=== PATIENT | male | born 1935 | race African-American/Black ===

== ENCOUNTER 2021-09-28 15:00 | Inpatient (IN) | payer MEDICARE, OTHER ==
[~2021-09-28] VITALS: Ht 167.6 cm; Wt 84.8 kg
[~2021-09-28 15:00] MED LIST: AMLO-258 PO; ASPI81TA39 PO; DOCU-385 PO; FAMO20 PO; FOSI20TA98 PO; HEPA500018 SQ; MEMA1CAP3 PO; QUET25TA PO
[2021-09-28] MEDS ORDERED: BUME1TAB34 PO (15:29)
[2021-09-28] MEDS ORDERED: DONE-51 PO (15:29)
[2021-09-28] MEDS ORDERED: HYDR50TA36 PO (15:29)
[2021-09-28] MEDS ORDERED: APIX5TAB PO (15:29)
[2021-09-28] MEDS ORDERED: HYDR-4527 PO (15:29)
[2021-09-28] MEDS ORDERED: LISI-894 PO (15:29)
[2021-09-28 16:01] LABS: ANION GAP 10 mmol/L (8-16); CARBON DIOXIDE 30 mmol/L (22-29); CHLORIDE 103 mmol/L (98-107); CREATININE 1.58 mg/dL (0.60-1.30); GLOMERULAR FILTR. RATE CALC 51 mL/min (>60); GLUCOSE,RANDOM 135 mg/dL (70-110); POTASSIUM 3.9 mmol/L (3.5-5.1); SODIUM SERUM 143 mmol/L (136-145); UREA NITROGEN, BLOOD 26 mg/dL (7-18)
[2021-09-28 16:06] LABS: INR 1.1 (0.9-1.1); PROTHROMBIN TIME 11.9 SEC (9.4-11.6)
[2021-09-28 16:07] LABS: BASOPHILS % (AUTO) 0.7 % (0.0-2.0); EOSINOPHILS % (AUTO) 4.9 % (1.0-6.0); HEMATOCRIT 35.9 % (41-53); HEMOGLOBIN 11.6 g/dL (13.5-17.5); LYMPHOCYTES # (AUTO) 0.7 K/uL (1.0-4.8); LYMPHOCYTES % (AUTO) 5.5 % (22.0-44.0); MEAN CORPUSCULAR HGB CONC 32.4 G/dL (31.0-37.0); MEAN CORPUSCULAR VOLUME 86 fL (80-100); MONOCYTES % (AUTO) 8.7 % (2.0-9.0); NEUTROPHILS # (AUTO) 9.6 K/uL (1.8-7.7); NEUTROPHILS % (AUTO) 80.2 % (40.0-70.0); RED BLOOD CELL COUNT(AUTO) 4.16 MIL/uL (4.50-5.90); RED CELL DISTRIBUTION WIDTH 20.6 % (11.5-14.5)
[2021-09-28 16:08] LABS: ALANINE AMINOTRANSFERASE 24 U/L (12-78); ALBUMIN 3.6 g/dL (3.4-5.0); ALKALINE PHOSPHATASE 142 U/L (46-116); ASPARTATE AMINOTRANSFERASE 21 U/L (15-37); BILIRUBIN,TOTAL 0.4 mg/dL (0.1-1.0); TOTAL PROTEIN, SERUM 7.8 g/dL (6.4-8.2)
[2021-09-28] MEDS ORDERED: SODIUM CHLORIDE 0.9% 1,000 ML IV ONE (16:15)
[2021-09-28 16:16] LABS: PLATELET COUNT (AUTO) 870 K/uL (150-450)
[2021-09-28] MEDS ORDERED: AMLO10TA55 PO (16:19)
[2021-09-28] MEDS ORDERED: TAMS-13 PO (16:19)
[2021-09-28] MEDS ORDERED: MEMA28CA16 PO (16:19)
[2021-09-28 16:26] LABS: GLUCOMETER DEV NAME(LOC) ERT.5; GLUCOSE,POINT OF CARE 111 MG/DL (70-110)
[2021-09-28] MEDS ORDERED: HydrOXYzine HCL 25 MG TABLET PO PRN (17:15)
[2021-09-28 17:47] LABS: COVID AG,FIA SOURCE NASOPHARYNGEAL
[2021-09-28] MEDS ORDERED: QUET25TA PO (17:51)
[2021-09-28] MEDS ORDERED: TAMO10 PO (17:51)
[2021-09-28] MEDS: CefTRIAXone 1 GM/DEXTROSE 50 ML IV SCH (18:07)
[2021-09-28 18:15] LABS: FERRITIN 116 ng/mL (26-388); FREE T4 (FREE THYROXINE) 1.36 ng/dL (0.76-1.46); THYROID STIMULATING HORMONE 3.06 uIU/mL (0.36-3.74)
[2021-09-28] MEDS: MetroNIDAZOLE 500 MG/NACL 100 ML IV SCH (19:12)
[2021-09-28] MEDS ORDERED: OXYGEN THERAPY IH SCH (20:00)
[2021-09-28] MEDS: MEMANTINE HCL 10 MG TABLET PO SCH (21:00)
[2021-09-28] MEDS: APIXABAN 5 MG TABLET PO SCH (21:00)
[2021-09-28] MEDS: TAMSULOSIN HCL 0.4 MG CAPSULE PO SCH (21:00)
[2021-09-28] MEDS: DONEPEZIL HCL 10 MG TABLET PO SCH (21:00)
[2021-09-28] MEDS: LACTOBACILLUS ACIDOPHILUS/BULGARICUS TABLET PO SCH (21:00)
[2021-09-28] MEDS: HydrALAZINE HCL 50 MG TABLET PO SCH (21:00)
[2021-09-29 00:29] LABS: C.DIFF GDH ANTIGEN, Stool Negative (Negative); C.DIFF TOXINS A&B, Stool Negative (Negative)
[2021-09-29] MEDS: MetroNIDAZOLE 500 MG/NACL 100 ML IV SCH ×3 (03:59→18:50)
[2021-09-29 04:20] VITALS: BP 156/72
[2021-09-29 06:55] LABS: BASOPHILS % (AUTO) 0.2 % (0.0-2.0); EOSINOPHILS % (AUTO) 0 % (1.0-6.0); HEMATOCRIT 31.7 % (41-53); HEMOGLOBIN 10.3 g/dL (13.5-17.5); LYMPHOCYTES # (AUTO) 0.2 K/uL (1.0-4.8); LYMPHOCYTES % (AUTO) 1.4 % (22.0-44.0); MEAN CORPUSCULAR HEMOGLOBIN 27.9 pg (26.0-34.0); MEAN CORPUSCULAR HGB CONC 32.3 G/dL (31.0-37.0); MEAN CORPUSCULAR VOLUME 86 fL (80-100); MONOCYTES # (AUTO) 2.3 K/uL (0.1-1.0); MONOCYTES % (AUTO) 13.3 % (2.0-9.0); NEUTROPHILS # (AUTO) 14.4 K/uL (1.8-7.7); NEUTROPHILS % (AUTO) 85.1 % (40.0-70.0); RED BLOOD CELL COUNT(AUTO) 3.68 MIL/uL (4.50-5.90); RED CELL DISTRIBUTION WIDTH 20.5 % (11.5-14.5)
[2021-09-29 07:02] LABS: ALANINE AMINOTRANSFERASE 17 U/L (12-78); ALBUMIN 2.9 g/dL (3.4-5.0); ALKALINE PHOSPHATASE 112 U/L (46-116); ANION GAP 9 mmol/L (8-16); ASPARTATE AMINOTRANSFERASE 18 U/L (15-37); BILIRUBIN,TOTAL 0.5 mg/dL (0.1-1.0); CALCIUM, TOTAL 8.2 mg/dL (8.8-10.5); CARBON DIOXIDE 28 mmol/L (22-29); CHLORIDE 107 mmol/L (98-107); CREATININE 1.31 mg/dL (0.60-1.30); GLUCOSE,RANDOM 121 mg/dL (70-110); SODIUM SERUM 144 mmol/L (136-145); TOTAL PROTEIN, SERUM 6.7 g/dL (6.4-8.2); UREA NITROGEN, BLOOD 22 mg/dL (7-18)
[2021-09-29 07:06] LABS: GLOMERULAR FILTR. RATE CALC > 60 mL/min (>60)
[2021-09-29 07:48] VITALS: BP 125/48
[2021-09-29 07:48] LABS: PLATELET COUNT (AUTO) 769 K/uL (150-450)
[2021-09-29] MEDS: APIXABAN 5 MG TABLET PO SCH (09:32)
[2021-09-29] MEDS: AmLODIPine BESYLATE 10 MG TABLET PO SCH (09:32)
[2021-09-29] MEDS: MEMANTINE HCL 10 MG TABLET PO SCH ×2 (09:32→20:46)
[2021-09-29] MEDS: LACTOBACILLUS ACIDOPHILUS/BULGARICUS TABLET PO SCH ×2 (09:32→20:46)
[2021-09-29] MEDS: ASPIRIN 81 MG CHEWABLE TABLET PO SCH (09:32)
[2021-09-29] MEDS: HydrALAZINE HCL 50 MG TABLET PO SCH ×3 (09:33→20:46)
[2021-09-29 11:23] VITALS: BP 131/55
[2021-09-29] MEDS ORDERED: SODIUM CHLORIDE 0.9% 250 ML IV ONE (12:21)
[2021-09-29 15:50] VITALS: BP 129/64
[2021-09-29] MEDS: CefTRIAXone 1 GM/DEXTROSE 50 ML IV SCH (17:26)
[2021-09-29 17:49] LABS: HEMATOCRIT 31.5 % (41-53)
[2021-09-29 19:39] VITALS: BP 150/62
[2021-09-29] MEDS: DONEPEZIL HCL 10 MG TABLET PO SCH (20:46)
[2021-09-29] MEDS: TAMSULOSIN HCL 0.4 MG CAPSULE PO SCH (20:46)
[2021-09-30 00:07] VITALS: BP 125/59
[2021-09-30] MEDS: MetroNIDAZOLE 500 MG/NACL 100 ML IV SCH ×3 (03:22→20:01)
[2021-09-30 04:46] VITALS: BP 101/53
[2021-09-30 06:45] LABS: BASOPHILS % (AUTO) 0.6 % (0.0-2.0); EOSINOPHILS % (AUTO) 1.8 % (1.0-6.0); HEMATOCRIT 27.8 % (41-53); HEMOGLOBIN 9.2 g/dL (13.5-17.5); LYMPHOCYTES # (AUTO) 0.4 K/uL (1.0-4.8); LYMPHOCYTES % (AUTO) 3.5 % (22.0-44.0); MEAN CORPUSCULAR HEMOGLOBIN 28.4 pg (26.0-34.0); MEAN CORPUSCULAR VOLUME 86 fL (80-100); MONOCYTES % (AUTO) 8.6 % (2.0-9.0); NEUTROPHILS # (AUTO) 9.7 K/uL (1.8-7.7); PLATELET COUNT (AUTO) 679 K/uL (150-450); RED BLOOD CELL COUNT(AUTO) 3.22 MIL/uL (4.50-5.90); RED CELL DISTRIBUTION WIDTH 20.4 % (11.5-14.5)
[2021-09-30 07:12] LABS: ALANINE AMINOTRANSFERASE 15 U/L (12-78); ALBUMIN 2.6 g/dL (3.4-5.0); ALKALINE PHOSPHATASE 96 U/L (46-116); ANION GAP 7 mmol/L (8-16); ASPARTATE AMINOTRANSFERASE 19 U/L (15-37); BILIRUBIN,TOTAL 0.4 mg/dL (0.1-1.0); CALCIUM, TOTAL 8.3 mg/dL (8.8-10.5); CARBON DIOXIDE 27 mmol/L (22-29); CHLORIDE 109 mmol/L (98-107); CREATININE 1.31 mg/dL (0.60-1.30); GLOMERULAR FILTR. RATE CALC > 60 mL/min (>60); GLUCOSE,RANDOM 114 mg/dL (70-110); POTASSIUM 3.4 mmol/L (3.5-5.1); SODIUM SERUM 143 mmol/L (136-145); TOTAL PROTEIN, SERUM 6.1 g/dL (6.4-8.2); UREA NITROGEN, BLOOD 18 mg/dL (7-18)
[2021-09-30 07:15] LABS: NEUTROPHILS % (AUTO) 85.5 % (40.0-70.0)
[2021-09-30 07:55] VITALS: BP 124/52
[2021-09-30] MEDS: ASPIRIN 81 MG CHEWABLE TABLET PO SCH (08:38)
[2021-09-30] MEDS: MEMANTINE HCL 10 MG TABLET PO SCH ×2 (08:38→20:14)
[2021-09-30] MEDS: HydrALAZINE HCL 50 MG TABLET PO SCH ×3 (08:38→20:12)
[2021-09-30] MEDS: LACTOBACILLUS ACIDOPHILUS/BULGARICUS TABLET PO SCH ×2 (08:38→20:14)
[2021-09-30] MEDS: AmLODIPine BESYLATE 10 MG TABLET PO SCH (08:39)
[2021-09-30 11:59] VITALS: BP 129/60
[2021-09-30 12:45] LABS: MAGNESIUM 2.3 mg/dL (1.80-2.40); PHOSPHORUS 2.1 mg/dL (2.5-4.9)
[2021-09-30] MEDS ORDERED: VANCOMYCIN HCL 1.25 GM in DEXTROSE 5%-WATER 250 ML IV ONE (13:00)
[2021-09-30] MEDS ORDERED: POTASSIUM CHLORIDE 20 MEQ ER TABLET PO ONE (13:45)
[2021-09-30] MEDS ORDERED: SODIUM,POTASSIUM PHOSPHATES POWDER PACKET PO ONE (13:45)
[2021-09-30 16:06] LABS: OVA AND PARASITES EXAM Final report
[2021-09-30 16:47] VITALS: BP 103/63
[2021-09-30] MEDS: CefTRIAXone 1 GM/DEXTROSE 50 ML IV SCH (18:24)
[2021-09-30 19:12] VITALS: BP 119/66
[2021-09-30] MEDS: DONEPEZIL HCL 10 MG TABLET PO SCH (20:13)
[2021-09-30] MEDS: APIXABAN 5 MG TABLET PO SCH (20:13)
[2021-09-30] MEDS: TAMSULOSIN HCL 0.4 MG CAPSULE PO SCH (20:13)
[2021-10-01] VITALS (7 sets, daily range): BP systolic 99–132; BP diastolic 49–75
[2021-10-01] MEDS: MetroNIDAZOLE 500 MG/NACL 100 ML IV SCH ×2 (03:48→11:07)
[2021-10-01 07:08] LABS: ANION GAP 9 mmol/L (8-16); CALCIUM, TOTAL 8.1 mg/dL (8.8-10.5); CARBON DIOXIDE 26 mmol/L (22-29); CHLORIDE 107 mmol/L (98-107); CREATININE 1.16 mg/dL (0.60-1.30); GLOMERULAR FILTR. RATE CALC > 60 mL/min (>60); GLUCOSE,RANDOM 101 mg/dL (70-110); PHOSPHORUS 2.5 mg/dL (2.5-4.9); POTASSIUM 3.4 mmol/L (3.5-5.1); SODIUM SERUM 142 mmol/L (136-145); UREA NITROGEN, BLOOD 15 mg/dL (7-18)
[2021-10-01] MEDS: HydrALAZINE HCL 50 MG TABLET PO SCH ×3 (08:10→20:44)
[2021-10-01] MEDS: AmLODIPine BESYLATE 10 MG TABLET PO SCH (08:18)
[2021-10-01] MEDS: VANCOMYCIN 1GM/WATER(PEG/NADA) 200 ML IV SCH (08:24)
[2021-10-01] MEDS: MEMANTINE HCL 10 MG TABLET PO SCH ×2 (08:25→20:46)
[2021-10-01] MEDS: ASPIRIN 81 MG CHEWABLE TABLET PO SCH (08:25)
[2021-10-01] MEDS: MULTIVITAMINS WITH MINERALS, THERAPEUTIC TABLET PO SCH (08:25)
[2021-10-01] MEDS: LACTOBACILLUS ACIDOPHILUS/BULGARICUS TABLET PO SCH ×2 (08:25→20:45)
[2021-10-01] MEDS: APIXABAN 5 MG TABLET PO SCH ×2 (08:25→20:44)
[2021-10-01 10:04] LABS: COVID AG,FIA SOURCE NASOPHARYNGEAL
[2021-10-01] MEDS: CefTRIAXone 1 GM/DEXTROSE 50 ML IV SCH (16:59)
[2021-10-01] MEDS ORDERED: POTASSIUM CHLORIDE 20 MEQ ER TABLET PO ONE (19:15)
[2021-10-01] MEDS: DONEPEZIL HCL 10 MG TABLET PO SCH (20:44)
[2021-10-01] MEDS: TAMSULOSIN HCL 0.4 MG CAPSULE PO SCH (20:45)
[2021-10-02] VITALS (8 sets, daily range): BP systolic 121–153; BP diastolic 61–69
[2021-10-02 06:52] LABS: BASOPHILS % (AUTO) 0.9 % (0.0-2.0); HEMATOCRIT 27.7 % (41-53); HEMOGLOBIN 9.5 g/dL (13.5-17.5); LYMPHOCYTES # (AUTO) 0.4 K/uL (1.0-4.8); LYMPHOCYTES % (AUTO) 6.2 % (22.0-44.0); MEAN CORPUSCULAR HEMOGLOBIN 29.2 pg (26.0-34.0); MEAN CORPUSCULAR HGB CONC 34.2 G/dL (31.0-37.0); MEAN CORPUSCULAR VOLUME 85 fL (80-100); MONOCYTES # (AUTO) 0.5 K/uL (0.1-1.0); MONOCYTES % (AUTO) 8.7 % (2.0-9.0); NEUTROPHILS # (AUTO) 4.5 K/uL (1.8-7.7); NEUTROPHILS % (AUTO) 73.2 % (40.0-70.0); PLATELET COUNT (AUTO) 696 K/uL (150-450); RED BLOOD CELL COUNT(AUTO) 3.25 MIL/uL (4.50-5.90); RED CELL DISTRIBUTION WIDTH 20.4 % (11.5-14.5)
[2021-10-02 06:58] LABS: ALANINE AMINOTRANSFERASE 12 U/L (12-78); ALBUMIN 2.5 g/dL (3.4-5.0); ALKALINE PHOSPHATASE 82 U/L (46-116); ANION GAP 8 mmol/L (8-16); ASPARTATE AMINOTRANSFERASE 16 U/L (15-37); BILIRUBIN,TOTAL 0.4 mg/dL (0.1-1.0); CALCIUM, TOTAL 8.1 mg/dL (8.8-10.5); CARBON DIOXIDE 27 mmol/L (22-29); CHLORIDE 109 mmol/L (98-107); CREATININE 1.19 mg/dL (0.60-1.30); GLUCOSE,RANDOM 97 mg/dL (70-110); POTASSIUM 4.1 mmol/L (3.5-5.1); SODIUM SERUM 144 mmol/L (136-145); TOTAL PROTEIN, SERUM 6.1 g/dL (6.4-8.2); UREA NITROGEN, BLOOD 20 mg/dL (7-18)
[2021-10-02 06:59] LABS: GLOMERULAR FILTR. RATE CALC > 60 mL/min (>60)
[2021-10-02] MEDS: MEMANTINE HCL 10 MG TABLET PO SCH ×2 (08:17→20:27)
[2021-10-02] MEDS: VANCOMYCIN 1GM/WATER(PEG/NADA) 200 ML IV SCH (08:17)
[2021-10-02] MEDS: MULTIVITAMINS WITH MINERALS, THERAPEUTIC TABLET PO SCH (08:17)
[2021-10-02] MEDS: APIXABAN 5 MG TABLET PO SCH ×2 (08:18→20:27)
[2021-10-02] MEDS: AmLODIPine BESYLATE 10 MG TABLET PO SCH (08:18)
[2021-10-02] MEDS: LACTOBACILLUS ACIDOPHILUS/BULGARICUS TABLET PO SCH ×2 (08:18→20:27)
[2021-10-02] MEDS: HydrALAZINE HCL 50 MG TABLET PO SCH ×3 (08:18→20:27)
[2021-10-02] MEDS: ASPIRIN 81 MG CHEWABLE TABLET PO SCH (08:18)
[2021-10-02] MEDS: CefTRIAXone 1 GM/DEXTROSE 50 ML IV SCH ×2 (19:05→20:36)
[2021-10-02] MEDS ORDERED: SODIUM CHLORIDE 0.9% 250 ML IV ONE (19:50)
[2021-10-02] MEDS: DONEPEZIL HCL 10 MG TABLET PO SCH (20:27)
[2021-10-02] MEDS: TAMSULOSIN HCL 0.4 MG CAPSULE PO SCH (20:27)
[2021-10-03 04:00] VITALS: BP 134/70
[2021-10-03] MEDS: VANCOMYCIN 1GM/WATER(PEG/NADA) 200 ML IV SCH (08:00)
[2021-10-03] MEDS: AmLODIPine BESYLATE 10 MG TABLET PO SCH (08:39)
[2021-10-03] MEDS: LACTOBACILLUS ACIDOPHILUS/BULGARICUS TABLET PO SCH ×2 (08:39→20:58)
[2021-10-03] MEDS: HydrALAZINE HCL 50 MG TABLET PO SCH ×3 (08:39→20:58)
[2021-10-03] MEDS: MEMANTINE HCL 10 MG TABLET PO SCH ×2 (08:39→20:58)
[2021-10-03] MEDS: MULTIVITAMINS WITH MINERALS, THERAPEUTIC TABLET PO SCH (08:39)
[2021-10-03] MEDS: APIXABAN 5 MG TABLET PO SCH ×2 (09:00→20:58)
[2021-10-03] MEDS: ASPIRIN 81 MG CHEWABLE TABLET PO SCH (09:00)
[2021-10-03 09:50] LABS: BASOPHILS % (AUTO) 1.3 % (0.0-2.0); EOSINOPHILS % (AUTO) 12.8 % (1.0-6.0); HEMATOCRIT 29.5 % (41-53); HEMOGLOBIN 9.9 g/dL (13.5-17.5); LYMPHOCYTES # (AUTO) 0.4 K/uL (1.0-4.8); LYMPHOCYTES % (AUTO) 8.2 % (22.0-44.0); MEAN CORPUSCULAR HEMOGLOBIN 28.7 pg (26.0-34.0); MEAN CORPUSCULAR HGB CONC 33.7 G/dL (31.0-37.0); MEAN CORPUSCULAR VOLUME 85 fL (80-100); MONOCYTES # (AUTO) 0.6 K/uL (0.1-1.0); MONOCYTES % (AUTO) 11.3 % (2.0-9.0); NEUTROPHILS # (AUTO) 3.4 K/uL (1.8-7.7); NEUTROPHILS % (AUTO) 66.4 % (40.0-70.0); RED BLOOD CELL COUNT(AUTO) 3.45 MIL/uL (4.50-5.90); RED CELL DISTRIBUTION WIDTH 19.8 % (11.5-14.5)
[2021-10-03 10:13] LABS: PLATELET COUNT (AUTO) 760 K/uL (150-450)
[2021-10-03 10:20] LABS: ALANINE AMINOTRANSFERASE 15 U/L (12-78); ALBUMIN 2.6 g/dL (3.4-5.0); ALKALINE PHOSPHATASE 87 U/L (46-116); ANION GAP 7 mmol/L (8-16); ASPARTATE AMINOTRANSFERASE 15 U/L (15-37); BILIRUBIN,TOTAL 0.3 mg/dL (0.1-1.0); CALCIUM, TOTAL 8.2 mg/dL (8.8-10.5); CARBON DIOXIDE 27 mmol/L (22-29); CHLORIDE 106 mmol/L (98-107); CREATININE 1.23 mg/dL (0.60-1.30); GLOMERULAR FILTR. RATE CALC > 60 mL/min (>60); GLUCOSE,RANDOM 107 mg/dL (70-110); POTASSIUM 3.9 mmol/L (3.5-5.1); SODIUM SERUM 140 mmol/L (136-145); TOTAL PROTEIN, SERUM 6.1 g/dL (6.4-8.2); UREA NITROGEN, BLOOD 16 mg/dL (7-18); VANCOMYCIN,RANDOM 9.6 mcg/mL (25.0-50.0)
[2021-10-03 11:54] VITALS: BP 113/58
[2021-10-03] MEDS ORDERED: VANCOMYCIN HCL 1.5 GM in DEXTROSE 5%-WATER 250 ML IV ONE (14:00)
[2021-10-03 15:52] VITALS: BP 138/60
[2021-10-03] MEDS: CefTRIAXone 1 GM/DEXTROSE 50 ML IV SCH (18:00)
[2021-10-03 20:05] VITALS: BP 128/65
[2021-10-03] MEDS: DONEPEZIL HCL 10 MG TABLET PO SCH (20:58)
[2021-10-03] MEDS: TAMSULOSIN HCL 0.4 MG CAPSULE PO SCH (20:58)
[2021-10-04 00:23] VITALS: BP 136/63
[2021-10-04 04:50] VITALS: BP 140/70
[2021-10-04 08:00] VITALS: BP 140/80
[2021-10-04] MEDS ORDERED: VANCOMYCIN HCL 1.5 GM in DEXTROSE 5%-WATER 250 ML IV SCH (08:00)
[2021-10-04 08:21] LABS: BASOPHILS % (AUTO) 1.4 % (0.0-2.0); HEMATOCRIT 29.8 % (41-53); LYMPHOCYTES # (AUTO) 0.4 K/uL (1.0-4.8); MEAN CORPUSCULAR HEMOGLOBIN 28.6 pg (26.0-34.0); MEAN CORPUSCULAR HGB CONC 33.4 G/dL (31.0-37.0); MEAN CORPUSCULAR VOLUME 86 fL (80-100); MONOCYTES # (AUTO) 0.6 K/uL (0.1-1.0); MONOCYTES % (AUTO) 12.1 % (2.0-9.0); NEUTROPHILS # (AUTO) 3.1 K/uL (1.8-7.7); NEUTROPHILS % (AUTO) 64.5 % (40.0-70.0); RED BLOOD CELL COUNT(AUTO) 3.48 MIL/uL (4.50-5.90); RED CELL DISTRIBUTION WIDTH 19.8 % (11.5-14.5)
[2021-10-04 08:26] LABS: PLATELET COUNT (AUTO) 759 K/uL (150-450)
[2021-10-04 08:34] LABS: ALANINE AMINOTRANSFERASE 18 U/L (12-78); ALBUMIN 2.6 g/dL (3.4-5.0); ALKALINE PHOSPHATASE 91 U/L (46-116); ANION GAP 7 mmol/L (8-16); ASPARTATE AMINOTRANSFERASE 20 U/L (15-37); BILIRUBIN,TOTAL 0.4 mg/dL (0.1-1.0); CALCIUM, TOTAL 8.2 mg/dL (8.8-10.5); CARBON DIOXIDE 26 mmol/L (22-29); CHLORIDE 106 mmol/L (98-107); CREATININE 1.07 mg/dL (0.60-1.30); GLUCOSE,RANDOM 106 mg/dL (70-110); POTASSIUM 3.8 mmol/L (3.5-5.1); SODIUM SERUM 139 mmol/L (136-145); TOTAL PROTEIN, SERUM 6.1 g/dL (6.4-8.2); UREA NITROGEN, BLOOD 15 mg/dL (7-18)
[2021-10-04 08:36] LABS: GLOMERULAR FILTR. RATE CALC > 60 mL/min (>60)
[2021-10-04] MEDS: LACTOBACILLUS ACIDOPHILUS/BULGARICUS TABLET PO SCH ×2 (08:43→20:15)
[2021-10-04] MEDS: MULTIVITAMINS WITH MINERALS, THERAPEUTIC TABLET PO SCH (08:43)
[2021-10-04] MEDS: ASPIRIN 81 MG CHEWABLE TABLET PO SCH (08:44)
[2021-10-04] MEDS: AmLODIPine BESYLATE 10 MG TABLET PO SCH (08:44)
[2021-10-04] MEDS: MEMANTINE HCL 10 MG TABLET PO SCH ×2 (08:44→20:16)
[2021-10-04] MEDS: HydrALAZINE HCL 50 MG TABLET PO SCH ×3 (08:45→20:16)
[2021-10-04] MEDS: APIXABAN 5 MG TABLET PO SCH ×2 (08:45→20:16)
[2021-10-04 11:17] VITALS: BP 144/66
[2021-10-04 15:34] VITALS: BP 140/72
[2021-10-04 20:04] VITALS: BP 144/68
[2021-10-04] MEDS: TAMSULOSIN HCL 0.4 MG CAPSULE PO SCH (20:15)
[2021-10-04] MEDS: DONEPEZIL HCL 10 MG TABLET PO SCH (20:16)
[2021-10-05] VITALS: BP 127/60
[2021-10-05 05:28] VITALS: BP 137/64
[2021-10-05 07:20] VITALS: BP 142/67
[2021-10-05 07:28] LABS: BASOPHILS % (AUTO) 1.7 % (0.0-2.0); EOSINOPHILS % (AUTO) 11.5 % (1.0-6.0); HEMOGLOBIN 10.4 g/dL (13.5-17.5); LYMPHOCYTES # (AUTO) 0.5 K/uL (1.0-4.8); LYMPHOCYTES % (AUTO) 9.5 % (22.0-44.0); MEAN CORPUSCULAR HEMOGLOBIN 28.6 pg (26.0-34.0); MEAN CORPUSCULAR HGB CONC 33.6 G/dL (31.0-37.0); MEAN CORPUSCULAR VOLUME 85 fL (80-100); MONOCYTES # (AUTO) 0.6 K/uL (0.1-1.0); MONOCYTES % (AUTO) 12.5 % (2.0-9.0); NEUTROPHILS # (AUTO) 3.3 K/uL (1.8-7.7); NEUTROPHILS % (AUTO) 64.8 % (40.0-70.0); RED BLOOD CELL COUNT(AUTO) 3.64 MIL/uL (4.50-5.90); RED CELL DISTRIBUTION WIDTH 20.4 % (11.5-14.5)
[2021-10-05 07:29] LABS: ALANINE AMINOTRANSFERASE 18 U/L (12-78); ALBUMIN 2.5 g/dL (3.4-5.0); ALKALINE PHOSPHATASE 91 U/L (46-116); ANION GAP 7 mmol/L (8-16); ASPARTATE AMINOTRANSFERASE 20 U/L (15-37); BILIRUBIN,TOTAL 0.3 mg/dL (0.1-1.0); CALCIUM, TOTAL 8.1 mg/dL (8.8-10.5); CARBON DIOXIDE 26 mmol/L (22-29); CHLORIDE 106 mmol/L (98-107); CREATININE 1.05 mg/dL (0.60-1.30); GLUCOSE,RANDOM 97 mg/dL (70-110); POTASSIUM 3.8 mmol/L (3.5-5.1); SODIUM SERUM 139 mmol/L (136-145); TOTAL PROTEIN, SERUM 6.4 g/dL (6.4-8.2); UREA NITROGEN, BLOOD 15 mg/dL (7-18)
[2021-10-05 07:30] LABS: GLOMERULAR FILTR. RATE CALC > 60 mL/min (>60)
[2021-10-05 07:36] LABS: PLATELET COUNT (AUTO) 794 K/uL (150-450)
[2021-10-05] MEDS: LACTOBACILLUS ACIDOPHILUS/BULGARICUS TABLET PO SCH (09:06)
[2021-10-05] MEDS: ASPIRIN 81 MG CHEWABLE TABLET PO SCH (09:06)
[2021-10-05] MEDS: MULTIVITAMINS WITH MINERALS, THERAPEUTIC TABLET PO SCH (09:06)
[2021-10-05] MEDS: AmLODIPine BESYLATE 10 MG TABLET PO SCH (09:06)
[2021-10-05] MEDS: APIXABAN 5 MG TABLET PO SCH (09:06)
[2021-10-05] MEDS: MEMANTINE HCL 10 MG TABLET PO SCH (09:07)
[2021-10-05] MEDS: HydrALAZINE HCL 50 MG TABLET PO SCH (09:07)
[2021-10-05 12:00] VITALS: BP 139/65
[2021-10-05] MEDS ORDERED: LACT1CAP70 PO (16:21)
[2021-10-05] MEDS ORDERED: MULT-248 PO (16:25)
== END 2021-10-05 17:03 | DRG 91 ==
LOC: EMS 15:00 → 5S 09-29 01:07
PROVIDERS: ADMIT Internal Medicine; ATTEND Internal Medicine
DX: G92.8 Other toxic encephalopathy (principal); J18.9 Pneumonia, unspecified organism; N17.9 Acute kidney failure, unspecified; R78.81 Bacteremia; K92.2 Gastrointestinal hemorrhage, unspecified; D50.9 Iron deficiency anemia, unspecified; D75.839 Thrombocytosis, unspecified; E87.6 Hypokalemia; I11.9 Hypertensive heart disease without heart failure; I25.10 Atherosclerotic heart disease of native coronary artery without angina pectoris; N40.0 Benign prostatic hyperplasia without lower urinary tract symptoms; E86.0 Dehydration; F03.90 Unspecified dementia, unspecified severity, without behavioral disturbance, psychotic disturbance, mood disturbance, and anxiety; I48.91 Unspecified atrial fibrillation; Z20.822 Contact with and (suspected) exposure to COVID-19; Z79.01 Long term (current) use of anticoagulants; Z87.820 Personal history of traumatic brain injury; Z85.46 Personal history of malignant neoplasm of prostate; Z95.0 Presence of cardiac pacemaker
CPT/HCPCS: 70450; 71045; 76770; 80048; 80053; 80202; 82728; 82948; 82962; 83735; 84100; 84145; 84439; 84443; 84484; 85014; 85018; 85025; 85610; 85730; 86850; 86900; 86901; 87040; 87045; 87077; 87081; 87177; 87205; 87324; 87449; 89055; 92610; 93005; 93306; 97116; 97162; 97530; 99291; J0696; J3370; J3490; J7030; J7050; J7060; Q9967; 36415-L1; 36415-TC